=== PATIENT | male | born 1960 | race Caucasian/White ===

== ENCOUNTER → 2016-09-27 | Outpatient (CLI) | payer BC ==
[~2016-09-27] MED LIST: ASPCH81X PO; CEPH500C PO; ERYOPO OPL; OXYC-57 PO; POLYSOL50 OPL; TAMS0.4C38 PO
[2016-09-27 12:53] LABS: BASO % 0.6 %; BASO ABS # 0.03 K/uL (0-0.2); COMPLETE YES; EOS % 4.6 %; HEMATOCRIT 46.6 % (42-52); IG% 0.2 %; LYMPH % 31.8 %; LYMPH ABS # 1.66 K/uL (1.2-3.4); MEAN CELL VOLUME 97.5 fL (80-100); MEAN CORPUSCULAR HEMOGLOBIN 33.3 pg (25-34); MEAN CORPUSCULAR HGB CONC 34.1 g/dl (32-36); MEAN PLATELET VOLUME 10.8 fL (7.4-10.4); MONO % 12.8 %; PLATELET COUNT 219 K/uL (130-400); RED BLOOD COUNT 4.78 M/uL (4.7-6.1); WHITE BLOOD COUNT 5.22 K/uL (4.8-10.8)
[2016-09-27 13:19] LABS: CHOLESTEROL/HDL RATIO 5.6; PROSTATE SPECIFIC ANTIGEN 2.98 ng/ml (0.000-4.000); THYROID STIMULATING HORMONE 1.9 uIu/ml (0.300-4.500)
== END | disposition home or self-care (01) ==
LOC: C.LABMFLN 08:08
PROVIDERS: ATTEND Family Medicine
DX: N40.0 Benign prostatic hyperplasia without lower urinary tract symptoms (principal); E78.00 Pure hypercholesterolemia, unspecified; Z12.5 Encounter for screening for malignant neoplasm of prostate; R53.83 Other fatigue

== ENCOUNTER 2017-03-23 17:04 | Emergency (ER) | payer BC ==
[~2017-03-23] VITALS: Ht 172.7 cm; Wt 105.1 kg
[~2017-03-23 17:04] MED LIST changes: -ASPCH81X PO; -CEPH500C PO; -ERYOPO OPL; -POLYSOL50 OPL; -TAMS0.4C38 PO
[2017-03-23 17:09] VITALS: BP 178/108; PULSE 66; TEMP 36.8; O2SAT 96; Ht 172.7 cm; Wt 105.1 kg
[2017-03-23] MEDS ORDERED: POLYSOL50 OPL (17:24)
[2017-03-23] MEDS ORDERED: PROPARACAINE HCL 0.5% OP SOLN 15 ML BTL ONE (17:26)
[2017-03-23] MEDS ORDERED: CEPH500C PO (17:52)
[2017-03-23] MEDS ORDERED: ERYOPO OPL (17:52)
--- NOTE | 2017-03-23 17:53 | EMERGENCY ROOM VISIT NOTE ---
ED Visit Note First contact with patient: 17:17 CHIEF COMPLAINT: Eye pain HISTORY OF PRESENT ILLNESS: This 56-year-old male patient presents to the emergency department ambulatory complaining of pain in the left eye for the last 5 days. There has been a constant moderate pain and irritation, redness and tearing in the eye. There is a mild blurring of vision at times and light bothers the eye. The vision has not been decreased over all. The patient does not wear contacts. The patient rates the pain as irritating and 8/10. The patient has seen his family doctor and was placed on polymyxin drops but has not had any improvement. The patient has not had previous injuries to this eye. He has not had any fevers, decreased vision, numbness, tingling, weakness , rash REVIEW OF SYSTEMS: A 10 system review of systems was completed with positives and pertinent negatives listed in the HPI. ALLERGIES: No known drug allergies MEDICATIONS: See nursing notes PMH: Patient denies SOCIAL HISTORY: The patient is and lives with family PHYSICAL EXAM: Vital Signs: Reviewed Nurse's notes, vital signs stable. Visual acuity []. GENERAL: This is a 56-year-old male, in no acute distress, but who is uncomfortable from the eye problem. Well-developed well-nourished. EYES: The pupils are equal round and reactive to light and accommodation. EOMs are full and without tenderness. There is discharge of clear tears from the left eye which is injected. There is no foreign body visible under the eyelid even after lid eversion. There does appear to be some ulceration beneath the eyelid. There is no foreign body. Funduscopic exam reveals no hemorrhages, papilledema, or other abnormalities. No foreign body was seen embedded in the cornea under slit lamp exam. The cornea was clear and no hyphema was seen. Fluorescein uptake was observed with ultraviolet light and reveals punctate uptake over the cornea and particularly at approximately 4:00. Intraocular pressure was 11 in the left eye and 16 in the right eye by auto tonometer EMERGENCY DEPARTMENT COURSE: I examined the patient. Alcaine 2 drops were placed in the patient's left eye. A slit lamp exam was performed as above. The patient appears to have some ulceration beneath the eyelid, has punctate uptake of floor seen and 2 small ulcerations at approximately 4:00. The patient will be switched to erythromycin ointment. He will be placed on Keflex as he does have some swelling to the upper eyelid, redness and ulceration. The patient does not have any rash to suggest shingles at this time and there is no evidence for dendritic lesion but the patient was advised to watch for these signs. The patient had complete resolution of his pain with Alcaine drops. He has no hyphema or hypopyon. He should follow-up with ophthalmology on Saturday for recheck. He should return with worsening symptoms. The patient was discharged home in good condition. Medication Reconciliation: I attest that I have personally reviewed the patient' s current medication list. Blood Pressure Screening: Patient was found to have a slightly elevated blood pressure due to circumstances. I do not believe that the patient requires hypertension monitoring. Current/Historical Medications Scheduled Cephalexin Monohydrate (Keflex), 500 MG PO TID Erythromycin Opth (Erythromycin Opth), 1 APPLN OPL TID Polymyxin/Trimethoprim Oph (Polytrim Oph), 1 DROP OPL Q4H Allergies Coded Allergies: No Known Allergies (Unverified , 04/04/07) Vital Signs Date Time Temp Pulse Resp B/P (MAP) Pulse Ox O2 Delivery O2 Flow Rate FiO2 03/23/17 17:09 36.8 66 18 178/108 96 Room Air Departure Information Impression Primary Impression: Corneal abrasion Dispostion Home / Self-Care Condition GOOD Prescriptions Cephalexin Monohydrate (Keflex) 500 Mg Cap 500 MG PO TID for 7 Days, #21 CAP Prov: Kaley Hargrove PA-C 03/23/17 Erythromycin Opth (ERYTHROMYCIN OPTH) 12 Appln/3.5 Gm Oint 1 APPLN OPL TID for 5 Days, #1 TUBE Prov: Kaley Hargrove PA-C 03/23/17 Referrals Jareth Bateman M.D. (PCP) Sachin Campo D.O. Patient Instructions Ciprofloxacin eye ointment, Corneal Injury, My [facility] Additional Instructions Erythromycin ointment 1/4 cm ribbon to the lower eyelid every 8 hours for 5 days Keflex as prescribed, until finished to treat for potential infection Return with any rash, worsening pain or symptoms Otherwise contact ophthalmology first thing Saturday morning for a recheck Problem Qualifiers Primary Impression: Corneal abrasion Encounter type: initial encounter Laterality: left Qualified Codes: S05.02XA - Injury of conjunctiva and corneal abrasion without foreign body, left eye, initial encounter
== END 2017-03-23 18:09 | disposition home or self-care (01) ==
LOC: C.EDB 17:06 → C.EDD 18:09
DX: S05.02XA Injury of conjunctiva and corneal abrasion without foreign body, left eye, initial encounter (principal); X58.XXXA Exposure to other specified factors, initial encounter

== ENCOUNTER → 2017-06-06 | Outpatient (CLI) | payer BC ==
[~2017-06-06] MED LIST changes: +ASPCH81X PO; +TAMS0.4C38 PO
--- NOTE | 2017-06-06 16:05 | DIAGNOSTIC IMAGING REPORT ---
KUB HISTORY: Ureteral stone. COMPARISON: KUB 05/30/2017. Abdomen and pelvis CT 05/27/2017. FINDINGS: The bowel gas pattern is unremarkable. There are no dilated loops of small bowel to suggest an obstruction. There is again noted a 9 x 5 mm stone adjacent to the left L4 transverse process. This has moved approximately 1 cm distal compared to the prior study. There is a punctate stone within the lower pole of the right kidney and an 8 mm stone within the upper pole the left kidney. These remain unchanged. No pneumoperitoneum or pneumatosis. IMPRESSION: 1. There is again noted the 9 x 5 mm stone within the mid left ureter which has moved approximately 1 cm distal compared to the prior study. 2. Stable bilateral nephrolithiasis. Electronically signed by: Shane Huber M.D. 06/06/2017 4:04 PM Dictated Date/Time: 06/06/2017 4:02 PM
== END | disposition home or self-care (01) ==
LOC: C.RAD 15:22
PROVIDERS: ATTEND Urology
DX: N20.1 Calculus of ureter (principal)

== ENCOUNTER → 2017-06-07 | Day surgery (SDC) | payer BC ==
[2017-06-03 13:18] VITALS: Ht 172.7 cm; Wt 100.0 kg
[~2017-06-07] VITALS: Ht 172.7 cm; Wt 100.0 kg
[~2017-06-07] MED LIST changes: +ATROPINE SULFATE 0.1 MG/ML 5ML SYR IV PRN; +CIPROFLOXACIN 400MG / D5W IV SCH; +DEXAMETHASONE SOD INJ 4 MG/ML VIAL ONE; +EpHEDrine SULFATE INJ 50 MG/ML AMP IV PRN; +FENTANYL CITRATE INJ 50 MCG/1 ML 2 ML VIAL IV PRN; +FENTANYL CITRATE INJ 50 MCG/1 ML 2 ML VIAL ONE; +LIDOCAINE HCL 2% 2 ML VIAL (20MG/ML) ONE; +MIDAZOLAM HCL 1 MG/ML 2ML VIAL ONE; +ONDANSETRON INJ 2 MG/ML 2 ML VIAL IV PRN; +ONDANSETRON INJ 2 MG/ML 2 ML VIAL ONE; +OXYCODONE/ACETAMINOPHEN 5-325 TAB PO PRN; +PROPOFOL IV EMULSION 10 MG/ML 20 ML VIAL IV ONE; +SCOPOLAMINE 1.5 MG TDSY TD ONE
[2017-06-07] MEDS: LACTATED RINGER'S 1000ML 1,000 ML IV SCH ×2 (07:28→09:40)
--- NOTE | 2017-06-07 07:35 | History & Physical Bridge Note ---
H&P Re-Evaluation Bridge Note: I have examined the patient, reviewed the History & Physical and in the interval since the performance of the History & Physical I have noted the following changes of clinical significance: No changes noted
--- NOTE | 2017-06-07 08:38 | Discharge Instructions ---
Discharge Instructions Date of Service Jun 07, 2017. Admission Reason for Admission: Stones Discharge Discharge Diagnosis / Problem: Left ureteral stones s/p ESWL Discharge Goals Goal(s): Decrease discomfort, Improve function, Improve disease control, Therapeutic intervention Activity Recommendations Activity Limitations: as noted below Lifting Limitations: no more than 25 pounds, gradually increase as tolerated Exercise/Sports Limitations: rest today, gradually increase as tolerated May Resume Sexual Activity: when tolerated Shower/Bathe: tomorrow . Instructions / Follow-Up Instructions / Follow-Up Follow-up on Jun 14 in [place] Office at 09:40 AM with KUB Xray beforehand Discharge Diet Recommended Diet: Regular Diet (good fluid intake) Procedures Procedures Performed: Left ureteral shockwave lithotripsy Pending Studies Studies pending at discharge: yes List of pending studies: KUB Xray before follow-up visit Medical Emergencies . Who to Call and When: Medical Emergencies: If at any time you feel your situation is an emergency, please call 911 immediately. . Non-Emergent Contact Non-Emergency issues call your: Urologist Call Non-Emergent contact if: you have a fever, temperature is above 101, your pain is not controlled, your pain is worsening, your pain is unusual for you, your pain is concerning you, you have any medication questions . . "Provider Documentation" section prepared by Santi Torres. . VTE Core Measure Inpt VTE Proph given/why not?: SCD's
--- NOTE | 2017-06-07 09:19 | [facility] Post Operative Brief Note ---
Immediate Operative Summary Operative Date Jun 07, 2017. Pre-Operative Diagnosis Left ureteral stone Post-Operative Diagnosis Same as pre-op Procedure(s) Performed Left Extracorporeal Shock Wave Lithotripsy - Ureteral Surgeon Dr. Santi Torres Real Estate Financial Analyst Surgeon(s) None Estimated Blood Loss 0 mL Findings Good stone fragmentation on fluoroscopy Specimens None Drains NA Anesthesia GALMA Complication(s) None Disposition Recovery Room / PACU
--- NOTE | 2017-06-07 09:34 | OPERATIVE REPORT ---
DATE OF OPERATION: 06/07/2017 PREOPERATIVE DIAGNOSIS: Left ureteral stones. POSTOPERATIVE DIAGNOSIS: Same. PROCEDURE: Left ureteral extracorporeal shockwave lithotripsy. SURGEON: Dr. Santi Torres. SYSTEMS TEST ENGINEER: None. ANESTHESIA: General anesthesia with laryngeal mask. COMPLICATIONS: None. FINDINGS: Good stone fragmentation on fluoroscopy. DETAILS OF PROCEDURE: The patient was brought to the litho suite. He was correctly identified and the stone was visualized on his most recent x-rays. After the correct time out was performed the patient was positioned over the therapy head. An adequate level of anesthesia was administered. The extracorporeal shockwave lithotripsy treatment was then commenced. Please see the [place] [facility] Stone Management sheet for complete treatment summary. After completion of the procedure the patient was taken to the recovery room in stable condition. I attest to the content of the Intraoperative Record and any orders documented therein. Any exception s are noted below.
[2017-06-07 09:49] VITALS: TEMP 36.5
--- NOTE | 2017-06-07 10:12 | Anesthesia Progress Nt - [facility] ---
Anesthesia Post Op Note Date & Time Jun 07, 2017 at 10:11 Vital Signs Pain Intensity: 0 Vital Signs Past 12 Hours Date Time Temp Pulse Resp B/P (MAP) Pulse Ox O2 Delivery O2 Flow Rate FiO2 06/07/17 09:49 36.5 52 18 156/84 (108) 96 Room Air 06/07/17 09:42 58 13 96 06/07/17 09:42 60 13 06/07/17 09:41 36.5 56 16 149/75 96 Mask 06/07/17 09:41 149/75 06/07/17 09:37 61 17 95 06/07/17 09:37 63 17 06/07/17 09:36 143/75 06/07/17 09:32 69 15 06/07/17 09:32 72 15 96 06/07/17 09:31 148/81 06/07/17 09:27 68 16 06/07/17 09:27 67 16 99 06/07/17 09:26 145/91 06/07/17 09:22 64 13 06/07/17 09:22 67 13 100 06/07/17 09:21 143/82 06/07/17 09:18 159/81 06/07/17 09:17 36.4 73 16 159/81 99 Mask 6 06/07/17 07:18 36.8 59 16 169/88 (115) 96 Room Air Notes Mental Status: alert / awake / arousable, participated in evaluation Pt Amnestic to Procedure: Yes Nausea / Vomiting: adequately controlled Pain: adequately controlled Airway Patency, RR, SpO2: stable & adequate BP & HR: stable & adequate Hydration State: stable & adequate Anesthetic Complications: no major complications apparent
[2017-06-07 10:19] VITALS: BP 164/92; PULSE 50; O2SAT 97
== END | disposition home or self-care (01) ==
LOC: X.SURG 07:06
PROVIDERS: ATTEND Urology
DX: N20.1 Calculus of ureter (principal); N40.0 Benign prostatic hyperplasia without lower urinary tract symptoms; E78.00 Pure hypercholesterolemia, unspecified; M54.16 Radiculopathy, lumbar region; Z87.891 Personal history of nicotine dependence; Z79.899 Other long term (current) drug therapy

== ENCOUNTER → 2017-06-14 | Outpatient (CLI) | payer BC ==
[~2017-06-14] MED LIST changes: -ATROPINE SULFATE 0.1 MG/ML 5ML SYR IV PRN; -CIPROFLOXACIN 400MG / D5W IV SCH; -DEXAMETHASONE SOD INJ 4 MG/ML VIAL ONE; -EpHEDrine SULFATE INJ 50 MG/ML AMP IV PRN; -FENTANYL CITRATE INJ 50 MCG/1 ML 2 ML VIAL IV PRN; -FENTANYL CITRATE INJ 50 MCG/1 ML 2 ML VIAL ONE; -LIDOCAINE HCL 2% 2 ML VIAL (20MG/ML) ONE; -MIDAZOLAM HCL 1 MG/ML 2ML VIAL ONE; -ONDANSETRON INJ 2 MG/ML 2 ML VIAL IV PRN; -ONDANSETRON INJ 2 MG/ML 2 ML VIAL ONE; -OXYCODONE/ACETAMINOPHEN 5-325 TAB PO PRN; -PROPOFOL IV EMULSION 10 MG/ML 20 ML VIAL IV ONE; -SCOPOLAMINE 1.5 MG TDSY TD ONE
--- NOTE | 2017-06-14 09:34 | DIAGNOSTIC IMAGING REPORT ---
KUB HISTORY: Follow-up study in a patient with nephrolithiasis STONES COMPARISON: KUB 06/06/2017, CT 05/27/2017. FINDINGS: The bowel gas pattern is non-obstructive. There is no organomegaly. 8 mm calculus of the left kidney redemonstrated. 3 mm calculus of the inferior pole right kidney is also unchanged. The previously noted 9 mm calculus of the left ureter at approximately the L4 level is no longer seen. There is ovoid hyperdensity measuring 2.0 x 2.1 cm over the central pelvis. Phleboliths of the pelvis noted. No pneumoperitoneum or pneumatosis. No fracture. IMPRESSION: 1. The previously noted 9 x 5 mm calculus of the distal left ureter is no longer identified. Unchanged bilateral nephrolithiasis. 2. Ovoid 2.1 cm hyperdensity overlying the central pelvis is indeterminate and may reflect bladder calculus or fecal debris. Electronically signed by: David Amin M.D. 06/14/2017 9:32 AM Dictated Date/Time: 06/14/2017 9:28 AM
== END | disposition home or self-care (01) ==
LOC: C.RAD 09:05
PROVIDERS: ATTEND Urology
DX: N20.1 Calculus of ureter (principal); N20.0 Calculus of kidney; R93.41 Abnormal radiologic findings on diagnostic imaging of renal pelvis, ureter, or bladder

== ENCOUNTER → 2017-07-11 | Outpatient (CLI) | payer BC ==
[~2017-07-11] MED LIST changes: +ASPI81TA28 PO
--- NOTE | 2017-07-11 09:22 | DIAGNOSTIC IMAGING REPORT ---
KUB CLINICAL HISTORY: Ureteral stone. FINDINGS: 2 AP supine abdominal radiographs are compared to study dated 06/14/2017. Correlation is made with abdominal CT dated 05/27/2017. There is a nonobstructed abdominal bowel gas pattern. An 8 mm nonobstructing calculus is again seen projecting over the left kidney. No calcifications are clearly seen projecting over the right kidney along the course of the ureters. Pelvic phleboliths are observed. Skeletal structures are osteopenic. There is mild lumbosacral spondylosis and scoliosis. IMPRESSION: 1. An 8 mm nonobstructing calculus is again seen projecting over the left kidney. 2. The large distal left ureteral stone seen on 06/14/2017 is no longer present. There is no clear evidence of ureteral stone on today's examination. Electronically signed by: Jareth Rangel M.D. 07/11/2017 9:21 AM Dictated Date/Time: 07/11/2017 9:16 AM
[2017-07-11 12:07] LABS: BASO % 0.5 %; BASO ABS # 0.03 K/uL (0-0.2); COMPLETE YES; EOS % 2.8 %; HEMATOCRIT 47.2 % (42-52); IG% 0.2 %; MEAN CELL VOLUME 99.2 fL (80-100); MEAN CORPUSCULAR HEMOGLOBIN 33.4 pg (25-34); MEAN CORPUSCULAR HGB CONC 33.7 g/dl (32-36); MEAN PLATELET VOLUME 10.8 fL (7.4-10.4); MONO % 10.5 %; PLATELET COUNT 230 K/uL (130-400); RED BLOOD COUNT 4.76 M/uL (4.7-6.1)
[2017-07-11 12:32] LABS: BLOOD UREA NITROGEN 13 mg/dl (7-18); CREATININE 0.79 mg/dl (0.60-1.40); GLUCOSE 91 mg/dl (70-99)
[2017-07-11 12:33] LABS: BUN/CREATININE RATIO 16.8 (10-20); CALCIUM 8.4 mg/dl (8.5-10.1); CARBON DIOXIDE 31 mmol/L (21-32); CHLORIDE 106 mmol/L (98-107); POTASSIUM 3.7 mmol/L (3.5-5.1); SODIUM 139 mmol/L (136-145)
== END | disposition home or self-care (01) ==
LOC: C.RAD 09:02
PROVIDERS: ATTEND Urology
DX: N20.2 Calculus of kidney with calculus of ureter (principal)

== ENCOUNTER → 2017-07-26 | Outpatient (CLI) | payer BC ==
[~2017-07-26] MED LIST changes: -ASPCH81X PO; -OXYC-57 PO; +OXYC7.5T65 PO
--- NOTE | 2017-07-26 08:01 | DIAGNOSTIC IMAGING REPORT ---
KUB CLINICAL HISTORY: Ureteral stone. FINDINGS: 2 AP supine abdominal radiographs are compared to study dated 07/11/2017. Correlation is made with abdominal CT dated 05/27/2017. There is a nonobstructed abdominal bowel gas pattern. An 8 mm nonobstructing calculus is again seen projecting over the left kidney. A 3 mm nonobstructing calculus projects over the right lower pole. There is no radiographic evidence of ureteral calculus on today's examination. Pelvic phleboliths are observed. The skeletal structures are osteopenic. There is mild lumbosacral spondylosis and scoliosis. IMPRESSION: 1. Bilateral nonobstructing renal calculi as above. 2. No ureteral stone is clearly identified. Electronically signed by: Jareth Rangel M.D. 07/26/2017 8:00 AM Dictated Date/Time: 07/26/2017 7:58 AM
== END | disposition home or self-care (01) ==
LOC: C.RAD 07:37
PROVIDERS: ATTEND Urology
DX: N20.0 Calculus of kidney (principal)

== ENCOUNTER → 2017-07-26 | Day surgery (SDC) | payer BC ==
[2017-07-12 11:02] VITALS: Ht 172.7 cm; Wt 100.0 kg
[~2017-07-26] VITALS: Ht 172.7 cm; Wt 100.0 kg
[~2017-07-26] MED LIST changes: +ATROPINE SULFATE 0.1 MG/ML 5ML SYR IV PRN; +CHECK SCOPOLAMINE PATCH PLACEMENT SCH; +CIPROFLOXACIN / D5W 400 MG IV SCH; +CIPROFLOXACIN 400MG / D5W IV SCH; +DEXAMETHASONE SOD INJ 4 MG/ML VIAL ONE; +EpHEDrine SULFATE INJ 50 MG/ML AMP IV PRN; +FENTANYL CITRATE INJ 50 MCG/1 ML 2 ML VIAL IV PRN; +FENTANYL CITRATE INJ 50 MCG/1 ML 2 ML VIAL ONE; +HYDROmorphone INJ 1 MG/ML SYR IV PRN; +LACTATED RINGER'S 1000ML 1,000 ML IV SCH; +LIDOCAINE HCL 2% 2 ML VIAL (20MG/ML) ONE; +MIDAZOLAM HCL 1 MG/ML 2ML VIAL ONE; +ONDANSETRON INJ 2 MG/ML 2 ML VIAL IV PRN; +ONDANSETRON INJ 2 MG/ML 2 ML VIAL ONE; +OXYCODONE/ACETAMINOPHEN 5-325 TAB PO PRN; +PROMETHAZINE HCL INJ 12.5 MG in SODIUM CHLORIDE 0.9% 50ML 50 ML IV PRN; +PROPOFOL IV EMULSION 10 MG/ML 20 ML VIAL IV ONE; +SCOPOLAMINE 1.5 MG TDSY TD ONE; +SCOPOLAMINE 1.5 MG TDSY TD SCH
--- NOTE | 2017-07-26 09:52 | Discharge Instructions ---
Discharge Instructions Date of Service Jul 26, 2017. Admission Reason for Admission: Stones Discharge Discharge Diagnosis / Problem: L renal stone s/p ESWL Discharge Goals Goal(s): Improve function, Improve disease control, Therapeutic intervention Activity Recommendations Activity Limitations: as noted below Lifting Limitations: no more than 25 pounds, gradually increase as tolerated Exercise/Sports Limitations: rest today, gradually increase as tolerated May Resume Sexual Activity: when tolerated Shower/Bathe: no limitations Driving or Machine Use: resume 1 day after discharge . Instructions / Follow-Up Instructions / Follow-Up Strain urine as instructed, bring fragments to appointment. Follow-up in office as scheduled with KUB Xray beforehand. Current Hospital Diet Patient's current hospital diet: Discharge Diet Recommended Diet: Regular Diet (good fluid intake) Procedures Procedures Performed: Left renal ESWL Pending Studies Studies pending at discharge: no Medical Emergencies . Who to Call and When: Medical Emergencies: If at any time you feel your situation is an emergency, please call 911 immediately. . Non-Emergent Contact Non-Emergency issues call your: Urologist Call Non-Emergent contact if: you have a fever, temperature is above 101, your pain is not controlled, your pain is worsening, your pain is unusual for you, your pain is concerning you, you have any medication questions . . "Provider Documentation" section prepared by Santi Torres. . VTE Core Measure Inpt VTE Proph given/why not?: SCD's [place] Drug Monitoring Program Search Results: patient reviewed within database, see additional documentation (two Rx in the past two months - patient requests refill due to colic previously )
--- NOTE | 2017-07-26 10:32 | [facility] Post Operative Brief Note ---
Immediate Operative Summary Operative Date Jul 26, 2017. Pre-Operative Diagnosis Left Renal Stone Post-Operative Diagnosis Same Procedure(s) Performed Left renal ESWL Surgeon Dr. Shruti Torres Yield Analyst Surgeon(s) None Estimated Blood Loss 0 Findings Good fragmentation after ESWL Specimens None Drains NA Anesthesia GALMA Complication(s) None Disposition Recovery Room / PACU
[2017-07-26 11:15] VITALS: TEMP 36.7
[2017-07-26 11:38] VITALS: BP 164/80; PULSE 50; O2SAT 97
--- NOTE | 2017-07-26 11:43 | Anesthesia Progress Nt - [facility] ---
Anesthesia Post Op Note Date & Time Jul 26, 2017 at 11:43 Vital Signs Pain Intensity: 0 Vital Signs Past 12 Hours Date Time Temp Pulse Resp B/P (MAP) Pulse Ox O2 Delivery O2 Flow Rate FiO2 07/26/17 11:38 50 16 164/80 (108) 97 Room Air 07/26/17 11:15 36.7 54 18 166/78 (107) 97 Room Air 07/26/17 11:06 55 17 133/70 96 07/26/17 11:06 36.4 57 17 07/26/17 11:01 58 18 07/26/17 11:01 57 18 99 07/26/17 11:00 143/72 07/26/17 10:56 58 14 100 07/26/17 10:56 59 14 07/26/17 10:55 151/78 07/26/17 10:51 59 18 07/26/17 10:51 60 18 100 07/26/17 10:50 160/78 07/26/17 10:46 56 14 100 07/26/17 10:46 55 14 07/26/17 10:45 148/86 07/26/17 10:42 36.5 63 20 183/96 100 Mask 6 07/26/17 10:42 168/93 07/26/17 10:41 65 99 07/26/17 10:41 65 07/26/17 08:11 36.8 70 16 169/96 (120) 94 Room Air Notes Mental Status: alert / awake / arousable, participated in evaluation Pt Amnestic to Procedure: Yes Nausea / Vomiting: adequately controlled Pain: adequately controlled Airway Patency, RR, SpO2: stable & adequate BP & HR: stable & adequate Hydration State: stable & adequate Anesthetic Complications: no major complications apparent
--- NOTE | 2017-07-26 11:52 | OPERATIVE REPORT ---
DATE OF OPERATION: 07/26/2017 PREOPERATIVE DIAGNOSIS: An 8 mm left renal stone. POSTOPERATIVE DIAGNOSIS: Same. PROCEDURE: Left-sided renal extracorporeal shockwave lithotripsy. SURGEON: Dr. Santi Torres. DENIER CONTROL OPERATOR: None. ANESTHESIA: General anesthesia with laryngeal mask. COMPLICATIONS: None. FINDINGS: Good stone fragmentation on fluoroscopy. DETAILS OF PROCEDURE: The patient was brought to the litho suite. He was correctly identified and the stone was visualized on his most recent x-rays. After the correct time out was performed the patient was positioned over the therapy head. An adequate level of anesthesia was administered. The extracorporeal shockwave lithotripsy treatment was then commenced. Please see the [place] [facility] Stone Management sheet for complete treatment summary. After completion of the procedure the patient was taken to the recovery room in stable condition. I attest to the content of the Intraoperative Record and any orders documented therein. Any exception s are noted below.
== END | disposition home or self-care (01) ==
LOC: X.SURG 07:59
PROVIDERS: ATTEND Urology
DX: N20.0 Calculus of kidney (principal); N40.0 Benign prostatic hyperplasia without lower urinary tract symptoms; E78.00 Pure hypercholesterolemia, unspecified; Z83.42 Family history of familial hypercholesterolemia; Z80.0 Family history of malignant neoplasm of digestive organs; Z80.42 Family history of malignant neoplasm of prostate; G47.33 Obstructive sleep apnea (adult) (pediatric); Z99.89 Dependence on other enabling machines and devices; Z87.442 Personal history of urinary calculi; Z87.891 Personal history of nicotine dependence

== ENCOUNTER → 2017-08-08 | Outpatient (CLI) | payer BC ==
[~2017-08-08] MED LIST changes: -ATROPINE SULFATE 0.1 MG/ML 5ML SYR IV PRN; -CHECK SCOPOLAMINE PATCH PLACEMENT SCH; -CIPROFLOXACIN / D5W 400 MG IV SCH; -CIPROFLOXACIN 400MG / D5W IV SCH; -DEXAMETHASONE SOD INJ 4 MG/ML VIAL ONE; -EpHEDrine SULFATE INJ 50 MG/ML AMP IV PRN; -FENTANYL CITRATE INJ 50 MCG/1 ML 2 ML VIAL IV PRN; -FENTANYL CITRATE INJ 50 MCG/1 ML 2 ML VIAL ONE; -HYDROmorphone INJ 1 MG/ML SYR IV PRN; -LACTATED RINGER'S 1000ML 1,000 ML IV SCH; -LIDOCAINE HCL 2% 2 ML VIAL (20MG/ML) ONE; -MIDAZOLAM HCL 1 MG/ML 2ML VIAL ONE; -ONDANSETRON INJ 2 MG/ML 2 ML VIAL IV PRN; -ONDANSETRON INJ 2 MG/ML 2 ML VIAL ONE; -OXYCODONE/ACETAMINOPHEN 5-325 TAB PO PRN; -PROMETHAZINE HCL INJ 12.5 MG in SODIUM CHLORIDE 0.9% 50ML 50 ML IV PRN; -PROPOFOL IV EMULSION 10 MG/ML 20 ML VIAL IV ONE; -SCOPOLAMINE 1.5 MG TDSY TD ONE; -SCOPOLAMINE 1.5 MG TDSY TD SCH; -TAMS0.4C38 PO
--- NOTE | 2017-08-08 08:51 | DIAGNOSTIC IMAGING REPORT ---
KUB CLINICAL HISTORY: N20.1 Ureteric [id number] COMPARISON STUDY: 07/26/2017 FINDINGS: There are multiple bilateral renal calculi. Pelvic basin calcifications remain similar to the prior study and likely represent phleboliths. There is been possible interval fragmentation of the dominant left renal calculus. IMPRESSION: 1. No evidence of pathologic bowel dilatation 2. Bilateral nephrolithiasis Electronically signed by: Jose Cline M.D. 08/08/2017 8:50 AM Dictated Date/Time: 08/08/2017 8:48 AM
== END | disposition home or self-care (01) ==
LOC: C.RAD 08:11
PROVIDERS: ATTEND Urology
DX: N20.0 Calculus of kidney (principal)

== ENCOUNTER → 2017-09-26 | Outpatient (CLI) | payer BC ==
--- NOTE | 2017-09-26 13:49 | DIAGNOSTIC IMAGING REPORT ---
KUB HISTORY: Follow-up study in a patient with nephrolithiasis. N40.0 COMPARISON: KUB 08/08/2017, CT 05/27/2017 FINDINGS: The bowel gas pattern is non-obstructive. There is no organomegaly. Bilateral nephrolithiasis redemonstrated measuring up to 4 mm, unchanged. No ureteral calculi are identified. Calcifications of the pelvis are again seen which appear unchanged suggesting phleboliths. No pneumoperitoneum or pneumatosis. No fracture. Minimal levoscoliosis of the lumbar spine with multilevel discogenic degenerative changes and endplate spurring. IMPRESSION: 1. Unchanged bilateral nephrolithiasis without ureteral calculi identified. 2. Nonobstructive bowel gas pattern. Electronically signed by: David Amin M.D. 09/26/2017 1:47 PM Dictated Date/Time: 09/26/2017 1:45 PM
== END | disposition home or self-care (01) ==
LOC: C.RAD 12:58
PROVIDERS: ATTEND Urology
DX: N40.0 Benign prostatic hyperplasia without lower urinary tract symptoms (principal); N20.0 Calculus of kidney

== ENCOUNTER → 2017-10-03 | Outpatient (CLI) | payer BC | END | disposition home or self-care (01) | LOC: C.LABMFLN 07:42 | PROVIDERS: ATTEND Family Medicine | DX: Z29.9 Encounter for prophylactic measures, unspecified (principal); Z13.220 Encounter for screening for lipoid disorders; Z13.1 Encounter for screening for diabetes mellitus ==

== ENCOUNTER → 2018-02-21 | Outpatient (CLI) | payer BC ==
[~2018-02-21] MED LIST changes: -OXYC7.5T65 PO
== END | disposition home or self-care (01) ==
LOC: C.LABMFLN 08:18
PROVIDERS: ATTEND Urology
DX: N40.0 Benign prostatic hyperplasia without lower urinary tract symptoms (principal)